=== PATIENT | male | born 1990 | race Caucasian/White ===

== ENCOUNTER 2019-05-08 | Observation (INO) | payer OTHER ==
[2019-05-08] VITALS (8 sets, daily range): BP systolic 102–132; BP diastolic 52–77; PULSE 68–101; TEMP 98.1–99.2
[~2019-05-08] VITALS: Ht 182.9 cm; Wt 100.3 kg
--- NOTE | 2019-05-08 10:44 | NUR ---
Patient arrived via EMS from [facility] for dx appendicitis. See assessment. Dr Augustin notified of arrival. Abdomen soft, non tender, non distended. Bowel sounds active x4 quads. +Flatus. NPO since 199905/07/2019. Plan of care reviewed. C/o pain to RLQ 4/10 with movement. No other c/o at this time.
--- NOTE | 2019-05-08 18:44 | NUR ---
Discharge instructions reviewed with patient, verbalized understanding. Discharged via wheelchair to auto/home with friend at 1840.
== END 2019-05-08 18:40 | disposition home or self-care (01) ==
LOC: JCC → SDCO 08:35 → JCC 11:17 → SDCO 11:21 → JCC 11:21 → SDCO 14:21 → JCC 14:25 → EDSTATUS 16:30 → JCC 18:40
PROVIDERS: ADMIT Surgery
DX: K35.80 Unspecified acute appendicitis (principal)
CPT/HCPCS: J0171; J0690; J1100; J1885; J2310; J2405; J2704; J7120